=== PATIENT | female | born 1980 | race Caucasian/White ===

== ENCOUNTER 2023-07-02 18:30 | Emergency (ER) | payer BC ==
[~2023-07-02] VITALS: Ht 165.1 cm; Wt 88.9 kg
[~2023-07-02 18:30] MED LIST: AMOX/K CLAV875 M1 PO; CIPRO XR500 M2 PO; CIPROFLOXACN500 MG PO; IMITREX25 MG PO; MEDDOSEPAK PO; NAPROSYN500 MG PO; NAPROXEN500 MG PO; TORADOL PO
[2023-07-02] MEDS ORDERED: KETOROLAC TROMETHAMINE 30 MG/ML SDV IM ONE (20:10)
[2023-07-02] MEDS ORDERED: PENicillin V POTASSIUM 500 MG/TAB PO ONE (20:10)
[2023-07-02] MEDS ORDERED: DIFLUCAN150 MG PO (20:11)
[2023-07-02] MEDS ORDERED: NAPROXEN500 MG PO (20:11)
[2023-07-02] MEDS ORDERED: PENICILLN VK500 MG PO (20:11)
[2023-07-02 20:40] VITALS: BP 163/85
== END 2023-07-02 20:42 | disposition home or self-care (01) | DRG 159 ==
LOC: ED 18:30
DX: K04.7 Periapical abscess without sinus (principal); K02.9 Dental caries, unspecified; S02.5XXA Fracture of tooth (traumatic), initial encounter for closed fracture; F17.200 Nicotine dependence, unspecified, uncomplicated; X58.XXXA Exposure to other specified factors, initial encounter